=== PATIENT | male | born 1970 | race Caucasian/White ===

== ENCOUNTER 2020-01-19 17:37 | Inpatient (IN) | payer OTHER, SELFPAY ==
[2020-01-19 18:01] VITALS: BP 116/77; PULSE 120; RESP 20; TEMP 37.5; O2SAT 95; BMI 19.4
--- NOTE | 2020-01-19 19:50 | PC.NURSE ---
PT RESTING IN STRETCHER TALKING IN ANOTHER LANGUAGE TO SOMEONE NOT THERE. PT REQUESTING FOOD AND DRINK BUT HAS NOT SEEN MD YET. WILL CONTINUE TO MONITOR PT. PT DENIES LOC OR HITTING HEAD. PT ALERT, RESPIRATIONS N/L. WILL CONTINUE TO MONITOR PT.
--- NOTE | 2020-01-19 20:20 | XR_ITS ---
EXAMINATION: XR CHEST CLINICAL INFORMATION: Status post fall COMPARISON: None TECHNIQUE: 2 views of the chest were obtained. FINDINGS: No significant abnormality is noted involving the heart, lungs, mediastinum, bony thorax or soft tissues. XR/XR chest 2V IMPRESSION: Unremarkable examination.
--- NOTE | 2020-01-19 20:21 | CT_ITS ---
EXAMINATION: CT HEAD WITHOUT CONTRAST CT CERVICAL SPINE WITHOUT CONTRAST CLINICAL INFORMATION: Fall. COMPARISON: None. TECHNIQUE: Imaging was performed from the skull base to vertex without intravenous administration of contrast. In addition, helical noncontrast CT imaging was acquired through the cervical spine and source images were reviewed along with axial reconstructions and sagittal and coronal MPRs. [This CT examination was performed using dose optimization techniques as appropriate, variously including the following: *Automated exposure control *Adjustment of mA and/or kV according to patient size (this includes techniques or standardized protocols for targeted exams where dose is matched to indication/reason for exam; i.e. extremities or head) *Use of iterative reconstruction technique] DLP: 1087 mGy-cm FINDINGS: HEAD: No intracranial mass, hemorrhage, or midline shift is visualized. The ventricles and sulci are age-appropriate. No extra-axial collections are identified. The paranasal sinuses and mastoid air cells are well aerated. CERVICAL SPINE: There is no evidence of acute cervical spine fracture. Vertebral bodies remain normal in height. Cervical vertebrae have normal alignment. Cervical disc heights are normal. The facet joints are normal. No pre- or paravertebral soft tissue abnormality is identified. There is a spiculated irregular nodule in the left upper lobe measuring approximate 7 mm, axial image 251/280 series 11. Partial visualization of orthopedic plate and screw in the mandible bilateral. CT/CT cervical spine wo con IMPRESSION: 1. No acute intracranial pathology. 2. No CT evidence of acute cervical spine fracture or traumatic subluxation 3. Spiculated 7 mm nodule at the left lung apex. CT of chest with contrast recommended for follow-up.
--- NOTE | 2020-01-19 20:21 | ECG_ITS ---
Test Reason : FALL Blood Pressure : / mmHG Vent. Rate : 106 BPM Atrial Rate : 106 BPM P-R Int : 136 ms QRS Dur : 066 ms QT Int : 358 ms P-R-T Axes : 023 002 058 degrees QTc Int : 475 ms Sinus tachycardia Otherwise normal ECG No previous ECGs available Referred By: Hilda Durand Electronically Signed By:KELLY STUBBS MD
[2020-01-19 20:48] VITALS: BP 110/77; PULSE 112; RESP 16; O2SAT 97
[2020-01-19 21:00] LABS: MANUAL DIFF FLAG NO
[2020-01-19 21:01] LABS: Basophils Percent Auto 0.1 % (0-2); Eosinophils Percent Auto 0.2 % (0-4); Hemoglobin 7.3 g/dl (14.0-18.0); Imm Gran Pct Auto 0.9 % (0.0-0.4); Lymphocytes Absolute Auto 1.3 X10*3/uL (1.2-4.9); Lymphocytes Percent Auto 10.9 % (20-40); Mean Corpuscular Hemoglobin 32.4 pg (27.0-33.0); Mean Corpuscular Volume 90.2 fL (80-98); Mean Platelet Volume 9.2 fL (9.4-12.4); Monocytes Absolute Auto 1.1 X10*3/uL (0.1-1.2); Monocytes Percent Auto 9.8 % (2-11); Neutrophils Percent Auto 78.1 % (45-73); Platelet Count 339 X10*3/uL (160-400); Red Blood Count 2.25 X10*6/uL (4.60-5.80); Red Cell Distribution Width 13.2 % (11.0-16.0); White Blood Count 11.5 X10*3/uL (4.8-10.8)
[2020-01-19 21:06] LABS: Hematocrit 20.3 % (42-52)
[2020-01-19 21:07] LABS: INTERNATIONAL NORM RATIO 1.4 (0.9-1.1); Prothrombin Time 16.6 SEC (10.8-13.0)
[2020-01-19 21:39] LABS: Alanine Aminotransferase 22 U/L (0-40); Albumin Level 3.6 g/dL (3.5-5.0); Alkaline Phosphatase 93 U/L (39-117); Anion Gap 19 (12-20); Aspartate Amino Transferase 63 U/L (5-37); Bilirubin Direct 0.6 mg/dL (0.0-0.5); Blood Urea Nitrogen 29 mg/dL (9-16); Calcium 7.7 mg/dL (8.4-10.2); Carbon Dioxide 37 mmol/L (22-29); Chloride 77 mmol/L (96-108); Creatinine Clr Calc Pharmacy 44.1; Estimated Glomerular Filt Rate 42; Glucose Random 63 mg/dL (60-115); Potassium 2.3 mmol/l (3.3-5.1); Sodium 131 mmol/L (135-145); Total Protein 6.2 g/dL (6.5-8.0)
--- NOTE | 2020-01-19 21:59 | CT_ITS ---
EXAMINATION: CT ABDOMEN AND PELVIS WITHOUT CONTRAST CLINICAL INFORMATION: Status post fall, anemia. COMPARISON: None TECHNIQUE: Multidetector volumetric imaging was performed from the superior aspect of the liver through the pubic symphysis. Sagittal and coronal reformatted images were obtained on the technologist's workstation. There is some limitation to the study secondary to motion artifact. Lack of intravenous and oral contrast limits visceral evaluation. This CT examination was performed using dose optimization techniques as appropriate, variously including the following: *Automated exposure control *Adjustment of mA and/or kV according to patient size (this includes techniques or standardized protocols for targeted exams where dose is matched to indication/reason for exam; i.e. extremities or head) *Use of iterative reconstruction technique DLP: 320 mGy-cm FINDINGS: LUNG BASES: The visualized lung bases are unremarkable. LIVER, GALLBLADDER, AND BILIARY TREE: Diffuse decreased attenuation without focal abnormality. Homogeneous increased attenuation in the gallbladder lumen without surrounding abnormality. No biliary ductal dilatation. PANCREAS: Unremarkable. SPLEEN: Unremarkable. ADRENAL GLANDS: Unremarkable. KIDNEYS AND URETERS: The kidneys are normal in size, shape, and attenuation. No hydronephrosis, hydroureter, or calculi seen. No perinephric stranding. BLADDER: Unremarkable. GASTROINTESTINAL TRACT: The stomach, small bowel, appendix and large bowel are unremarkable. ABDOMINAL WALL: No significant hernia is appreciated. LYMPH NODES: No lymphadenopathy. VASCULAR: Mild atherosclerosis in the infrarenal abdominal aorta without significant ectasia. PELVIC VISCERA: Unremarkable. OSSEOUS STRUCTURES: L5-S1 mild degenerative disc disease. No suspicious or acute abnormality. CT/CT abdomen pelvis wo con IMPRESSION: 1. Hepatic steatosis without focal abnormality. 2. Diffuse increased attenuation in the gallbladder lumen represent sludge. No evidence for acute cholecystitis. This could be confirmed with right upper quadrant ultrasound. 3. L5-S1 mild degenerative disc disease. No definitive acute abnormality.
[2020-01-19] MEDS: 0.9 % Sodium Chloride 1,000 ML 999 ML IVCONT (22:00)
--- NOTE | 2020-01-19 22:00 | PC.NURSE ---
PT RESTING IN STRETCHER SPEAKING TO THE WALL IN BENINESE. PT ALSO TRYING TO EAT THE PAD AND LICKING PAD LIKE AN ICE CREAM CONE. PT RE-ORIENTED. HL PLACED TO LAC AND RIGHT AC.
[2020-01-19 22:11] LABS: Influenza A PCR NEGATIVE (Negative); Influenza B PCR NEGATIVE (Negative); Resp Syncy Virus RNA Qual PCR NEGATIVE (Negative); SARS COV2 PCR INHOUSE NEGATIVE (Negative)
[2020-01-19] MEDS: Potassium Chloride/H20 10 MEQ/100 ML PIGGYBACK 100 MEQ IV ×2 (22:25→23:15)
[2020-01-19] MEDS: Magnesium Sulfate/H2O 2 GM/50 ML PIGGYBACK IV (22:25)
--- NOTE | 2020-01-19 22:33 | PC.NURSE ---
PT CONFUSED IN STRETCHER, SPEAKING TO UNKNOWN OBJECTS AND GRABBING AT THINGS IN THE AIR. PT RE-ORIENTED. PT MEDICATED PER EMAR. NS UP AND RUNNING W/O, SITE X 2 INTACT. PT DENIES ANY COMPLAINTS AT THIS TIME.
--- NOTE | 2020-01-19 22:35 | PC.NURSE ---
PT ON MONITOR WITH HR 70.
--- NOTE | 2020-01-19 23:00 | PC.NURSE ---
pt continuously responding to internal stimuli, alternating between Telugu and Greek, fairly easy to redirect. Voice foreign language interpreter used for explanation of plan for care. This RN witnessed pt sign blood product consent form. Pt refused rectal exam. K+ running.
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
[2020-01-19 23:41] LABS: Magnesium < 0.7 mg/dL (1.6-2.6)
[2020-01-20] VITALS (11 sets, daily range): BP systolic 106–140; BP diastolic 65–93; PULSE 86–113; RESP 16–96; TEMP 36.4–37.6; O2SAT 96–100
[2020-01-20] MEDS: Potassium Chloride/H20 10 MEQ/100 ML PIGGYBACK 100 MEQ IV ×6 (00:05→14:24)
--- NOTE | 2020-01-20 00:40 | PC.NURSE ---
PT MEDICATED WITH FIRST BAG OF POTASSIUM AND MAGNESIUM PER EMAR, WILL CONTINUE TO HANG POTASSIUM PER EMAR. PT REMAINS CONFUSED AND RESTLESS IN STRETCHER. HOSPITALIST AT BEDSIDE WITH PT.
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
[2020-01-20] MEDS: Haloperidol Lactate 5 MG/ML VIAL 1 MG IVPUSH (00:55)
[2020-01-20] MEDS: 0.9 % Sodium Chloride 1,000 ML 999 ML IVCONT (00:55)
--- NOTE | 2020-01-20 00:55 | PC.NURSE ---
PT IS VERY RESTLESS AND PT MEDICATED PER EMAR.
--- NOTE | 2020-01-20 02:15 | PC.NURSE ---
1ST UNIT OF RBC UP AND RUNNING PER ORDERS. CONSENT SIGNED WITH MONTEZ PLEITEZ. VS OBTAINED. PT TOLERATING WELL.
--- NOTE | 2020-01-20 02:15 | PC.NURSE ---
this rn verifying 1 unit of rbc with Guera mims
--- NOTE | 2020-01-20 02:30 | PC.NURSE ---
VS OBTAINED AND NO REACTION NOTED AT THIS TIME. PT DENIES ANY COMPLAINTS. BLOOD INFUSING W/O DIFFICULTY. SITE INTACT.
[2020-01-20] MEDS: Acetaminophen 325 MG TABLET 650 MG PO (03:00)
--- NOTE | 2020-01-20 03:30 | PC.NURSE ---
BLOOD INFUSED W/O DIFFICULTY, NO REACTION NOTED.
--- NOTE | 2020-01-20 04:15 | PC.NURSE ---
REPEAT LABS DRAWN TO LAB FOR EVAL.
[2020-01-20 04:23] LABS: Basophils Percent Auto 0.2 % (0-2); Eosinophils Absolute Auto 0.1 X10*3/uL (0.0-0.4); Eosinophils Percent Auto 0.5 % (0-4); Hematocrit 22.3 % (42-52); Hemoglobin 7.9 g/dl (14.0-18.0); Imm Gran Abs Auto 0.08 X10*3/uL (0.00-0.03); Imm Gran Pct Auto 0.8 % (0.0-0.4); Lymphocytes Absolute Auto 1.3 X10*3/uL (1.2-4.9); Lymphocytes Percent Auto 14.1 % (20-40); Mean Corpuscular HGB Conc 35.4 g/dl (31.0-36.0); Mean Corpuscular Hemoglobin 31.6 pg (27.0-33.0); Mean Corpuscular Volume 89.2 fL (80-98); Mean Platelet Volume 9.3 fL (9.4-12.4); Monocytes Percent Auto 10.9 % (2-11); Neutrophils Percent Auto 73.5 % (45-73); Platelet Count 296 X10*3/uL (160-400); White Blood Count 9.5 X10*3/uL (4.8-10.8)
[2020-01-20 04:24] LABS: MANUAL DIFF FLAG NO
[2020-01-20 04:48] LABS: Ethanol < 10 mg/dL
[2020-01-20 05:09] LABS: Anion Gap 21 (12-20); Blood Urea Nitrogen 24 mg/dL (9-16); Carbon Dioxide 29 mmol/L (22-29); Chloride 87 mmol/L (96-108); Creatinine Clr Calc Pharmacy 70.1; Estimated Glomerular Filt Rate > 60; Glucose Random 56 mg/dL (60-115); Magnesium 1.4 mg/dL (1.6-2.6); Potassium 2.5 mmol/l (3.3-5.1); Sodium 134 mmol/L (135-145)
[2020-01-20] MEDS: Magnesium Sulfate/D5W 1 GM/100 ML PIGGYBACK IV (05:18)
[2020-01-20 05:19] LABS: Glucose Urine UA NEG (NEG); Leukocyte Esterase Urine NEG (NEG); Nitrite Urine NEG (NEG); PH 5.5 (5.0-8.0); Urine Blood NEG (NEG); Urine Ketones 15 MG/DL (NEG); Urine Protein NEG (NEG-TRACE)
[2020-01-20 05:21] LABS: Appearance Urine CLEAR; Color Urine DARK YELLOW
--- NOTE | 2020-01-20 05:50 | PM.EVENT ---
Event Note Date of Service: 01/20/20 Event Note: Repeat labs showin- Hgb of 7.3-->7.9 s/p unit of PRBC. Follow up repeat CBC in 4 hrs 2- K of 2.3-->2.5 and Mag 0.7-->1.4. 1 g STAT ordered per ED more. Follow up repeat Mag levels 9 am 3- pOCT glucose of 56 s/p D50 per ED. Follow up repeat POCT
[2020-01-20 06:47] LABS: Amphetamine Screen Urine Not Detected (Not Detect); Barbiturates, Urine Not Detected (Not Detect); Benzodiazepines Screen Urine Not Detected (Not Detect); Cannabinoid Screen Urine Not Detected (Not Detect); Cocaine Screen Urine Not Detected (Not Detect); Opiate Screen Urine Not Detected (Not Detect); Phencyclidine Screen Urine Not Detected (Not Detect)
--- NOTE | 2020-01-20 07:14 | PC.NURSE ---
report given to SUSAN Albright. Also informed [facility], pt already received 1 unit of PRBC.
--- NOTE | 2020-01-20 09:30 | P.PNIM_ITS ---
Subjective Subjective Date of Service: 01/20/20 Interval History: Seen in f/u for anemia, wilian, electrolytes abnormalities ROS: mostly spanish speaking and denies any issues at moment Physical Exam Vital Signs: Vital Signs: Last Vital Signs Temp 98.1 F 01/20/20 07:48 Pulse 90 01/20/20 07:48 Resp 18 01/20/20 07:48 BP 131/87 01/20/20 07:48 Pulse Ox 98 01/20/20 07:48 Body Mass Index 19.4 General: AO X 3, no acute distress Resp: CTA bilateral CVS: S1,S2,RRR GI: +BS, NT, no distention, delclined rectal exam Skin: No rash Neuro: motor grossly intact Psych: appropriate affect Objective Data Current Medications Generic Name Dose Route Start Last Admin Trade Name Freq PRN Reason Stop Dose Admin Potassium Chloride/Sodium Chloride 20 meq in 1,000 mls @ 100 mls/hr 01/20/20 09:30 IVCONT .Q10H [facility] Pharmacy Consult 1 each 01/19/20 22:00 Consult Rx Perform Med Rec MISCELLANE ONCE PRN Consult order Labs CBC & Chem 7: 01/20/20 08:58 01/20/20 08:58 Assessment and Plan (1) Anemia: Status: Acute (2) Hyponatremia: Status: Acute (3) AMS (altered mental status): Status: Acute (4) WILIAN (acute kidney injury): Status: Acute (5) Acute hypokalemia: Status: Acute (6) Low blood magnesium: Status: Acute Assessment and Plan: 49/m alcoholic presenting with fall, AMS and found to have multiple lab abnormalites including low K, low mag, wilian, hypOnatremia #Severe symptomatic anemia--likely from acute blood loss, he declined rectal exam -s/p 2 units of RBC, h/h is better -IV PPI -GI eval for likely EGD -avoid NSAID #WILIAN--likely pre renal state, resolved with hydration #Hyponatremia--likely chronic alchol related, is better #HypOkalemia--likely from chronic malnutrition and possible GI loss. -s/p multiple IV K, give additional K, recheck labs and give more as necessary -Correct Magnesium #Hypomagnesemia--from effect of chronic alcoholism -replace with IV and/o PO #AMS/metabolic encephalopathy from abnormal labs -correct underlying labs #Coagulopathy--likely from alcoholic liver disease -Vitamin K #history of alcohol abuse--he says he last drank over a week ago. Put him on CIWA
[2020-01-20 09:48] LABS: MANUAL DIFF FLAG NO
[2020-01-20 09:51] LABS: Basophils Percent Auto 0.1 % (0-2); Eosinophils Absolute Auto 0.1 X10*3/uL (0.0-0.4); Eosinophils Percent Auto 0.7 % (0-4); Hematocrit 22.6 % (42-52); Hemoglobin 8.1 g/dl (14.0-18.0); Imm Gran Pct Auto 1.2 % (0.0-0.4); Lymphocytes Absolute Auto 1.1 X10*3/uL (1.2-4.9); Lymphocytes Percent Auto 12.5 % (20-40); Mean Corpuscular HGB Conc 35.8 g/dl (31.0-36.0); Mean Corpuscular Volume 89.3 fL (80-98); Mean Platelet Volume 9.3 fL (9.4-12.4); Monocytes Percent Auto 11.8 % (2-11); NRBC Pct Auto 0.2 /100WBC (0.0-0.2); Neutrophils Absolute Auto 6.4 X10*3/uL (2.0-8.3); Neutrophils Percent Auto 73.7 % (45-73); Platelet Count 320 X10*3/uL (160-400); Red Blood Count 2.53 X10*6/uL (4.60-5.80); Red Cell Distribution Width 14.2 % (11.0-16.0); Retic HGB Equivalent 37.1 pg (30.0-35.0); Reticulocyte Percent 0.4 % (0.5-1.8); White Blood Count 8.6 X10*3/uL (4.8-10.8)
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
[2020-01-20] MEDS: KCl 20 mEq in 0.45% Sod 20 MEQ/1,000 ML IV.SOLN 100 MEQ IVCONT (10:05)
[2020-01-20 10:14] LABS: Magnesium 1.6 mg/dL (1.6-2.6)
[2020-01-20 10:15] LABS: Iron 36 mcg/dL (45-160); Percent Iron Saturation 19 % (15-50); Total Iron Binding Capacity 191 mcg/dL (228-428); Unsaturated Iron Binding 155 ug/dL
[2020-01-20 10:45] LABS: Anion Gap 17 (12-20); Blood Urea Nitrogen 20 mg/dL (9-16); Calcium 7.1 mg/dL (8.4-10.2); Carbon Dioxide 33 mmol/L (22-29); Chloride 87 mmol/L (96-108); Creatinine Clr Calc Pharmacy 82.1; Estimated Glomerular Filt Rate > 60; Glucose Random 55 mg/dL (60-115); Potassium 2.3 mmol/l (3.3-5.1); Sodium 135 mmol/L (135-145)
[2020-01-20 11:11] LABS: Ferritin 2720 ng/mL (20-250)
[2020-01-20 11:24] LABS: Glucose, Whole Blood 69 mg/dL (60-115)
[2020-01-20] MEDS: Potassium Chloride Packet 20 MEQ PACKET 40 MEQ PO ×3 (11:28→23:35)
[2020-01-20] MEDS: Phytonadione (Vit K1) Oral 10 MG/ML AMPUL 5 MG PO (11:30)
[2020-01-20] MEDS: KCl 20 mEq in 5% Dex/0.45% Sod 20 MEQ/1,000 ML IV.SOLN 100 MEQ IVCONT ×2 (11:34→22:15)
--- NOTE | 2020-01-20 13:41 | MHC.CM.PN ---
Male 49 DX AMS. Information obtained from family EMR and Patient. He is independent and lives alone. 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 DP home no services family transport. CM will follow.
[2020-01-20 14:50] LABS: Vitamin B12 258 pg/mL (200-900)
[2020-01-20 15:58] LABS: Anion Gap 19 (12-20); Carbon Dioxide 30 mmol/L (22-29); Chloride 91 mmol/L (96-108); Potassium 3.8 mmol/l (3.3-5.1); Sodium 136 mmol/L (135-145)
[2020-01-20] MEDS: Pantoprazole Sodium 40 MG/10 ML VIAL IVPUSH (17:40)
--- NOTE | 2020-01-20 19:05 | P.CONNP_ITS ---
History of Present Illness Reason for Consult Consult date: 01/20/20 Chief Complaint Chief complaint: AMS History of Present Illness Narrative: Poor historian. Information obtained from EHR and RN and MD Labs on adm noted with multiple metabolic abnl: WILIAN, severe hypoK, hypoMg, mild hypoNa, anemia Gtting K/Mg repalced Review of Systems Review of Systems Constitutional : No changes in activity, No lethargy, No recent prior head injury, No agitation, No increased fussiness ENT/Mouth : No Ear Pain, No Nasal discharge/drainage Eyes: No Eye Pain, No Swelling, No Redness, No Foreign Body, No Vision Changes Cardiovascular : No Chest Pain, No SOB Respiratory : No Cough Gastrointestinal : No Nausea, No Vomiting, No abdominal Pain Genitourinary : No Dysuria, No Urinary Frequency, No Urinary Incontinence, No Urgency, No Flank Pain Musculoskeletal : No joint pain, No neck stiffness, No back pain/injury Skin : No lacerations Neuro : No unsteady gait, No Paresthesias, No Loss of Consciousness, No altered mental status, No Headache PMFSH Past Medical History Medical History HTN (hypertension) Functional capacity: independent ambulation Social History Social History Household Members: None Housing: House Do you presently have visiting nurse or other home services: No Smoking Status: Current every day smoker Tobacco Type: Cigarette Packs Per Day: 1 Cigarettes Per Day: 20.0 Years Smoked: 45 Patient Interested in Nicotine Replacement: No Patient Given Instructions on How to Stop Smoking: Yes Date Education Initiated: 01/20/20 Use of substances other than those prescribed or required for medical reasons: No Currently Displaying Signs/Symptoms of Drug Intoxication Withdrawal: No Have you been hit, kicked, punched, or otherwise hurt by someone within the past year? If so, by whom?: No Do you feel safe in your current relationship?: No Is there a partner from a previous relationship who is making you feel unsafe now?: No Are you made to feel afraid or neglected: No Spiritual Healthcare Practices: none Druze Healthcare Practices: none Cultural Healthcare Practices: none Advance Directives: No Advance Directives Information Provided: Yes Do you have thoughts of harming others: None Do you have a plan to hurt others: No Plan Recently lost weight without trying: Unsure service: No Current occupational status: employed Meds Allergies Allergy/AdvReac Type Severity Reaction Status Date / Time No Known Allergies Allergy Verified 01/19/20 18:05 Physical Exam Vital Signs: Last Vital Signs Temp 98.8 F 01/20/20 16:00 Pulse 98 01/20/20 16:00 Resp 18 01/20/20 16:00 BP 124/84 01/20/20 16:00 Pulse Ox 98 01/20/20 16:00 Body Mass Index 19.4 Const General: alert, awake and other (confused) Orientation/consciousness: oriented to person, oriented to place and oriented to time HENMT Head: Yes normal to inspection Eyes General: appearance normal, both eyes and all related structures Neck Neck: Yes normal visual inspection Chest Chest palpation & inspection: normal inspection of the chest Resp Effort & Inspection: normal respiratory effort Auscultation: clear to auscultation bilaterally Cardio Jugular venous distension: no JVD Rate: tachycardic Rhythm: regular rhythm Heart sounds: S1 normal heart sound present and S2 normal heart sound present GI Inspection: Yes normal to inspection Skin General skin exam: no rashes or lesions noted Neuro General: oriented to person, oriented to place and oriented to time Extrem General: Yes normal to inspection Results Lab Results Result Diagrams: 01/20/20 08:58 01/20/20 14:59 Lab results: Chemistry 01/19/20 01/20/20 01/20/20 20:54 04:10 04:10 Sodium 131 L 134 L Cancelled Potassium 2.3 L* 2.5 L* Cancelled Carbon Dioxide 37 H 29 Cancelled BUN 29 H 24 H Cancelled Creatinine 1.73 H 1.09 Cancelled Calcium 7.7 L 7.0 L D Cancelled 01/20/20 01/20/20 08:58 14:59 Sodium 135 136 Potassium 2.3 L* 3.8 D Carbon Dioxide 33 H 30 H BUN 20 H Creatinine 0.93 Calcium 7.1 L Hematology 01/19/20 01/20/20 01/20/20 20:54 04:10 08:58 WBC 11.5 H 9.5 8.6 Hgb 7.3 L 7.9 L 8.1 L Plt Count 339 296 320 Urinalysis 01/20/20 04:56 Urine Color DARK YELLOW Urine Appearance CLEAR Urine pH 5.5 Ur Specific [place] 1.020 Urine Protein NEG Urine Glucose (UA) NEG Urine Ketones 15 Urine Blood NEG Urine Nitrite NEG Ur Leukocyte Esterase NEG Assessment and Plan (1) Anemia: Status: Acute (2) Hyponatremia: Status: Acute (3) AMS (altered mental status): Status: Acute (4) WILIAN (acute kidney injury): Status: Acute (5) Acute hypokalemia: Status: Acute (6) Low blood magnesium: Status: Acute 1. wilian; resolved w iVF c/w dehydration/ renal hypoperfusion 2. Severe HypoK: mutifact including malutrtion and dehydation with 2ry incr destin d/t decr IV volume and resulting incr Urine K losses 3. hypoNa: mild 4. HypoMg 5. ETOH abuse REC: agree with K replacement and track K; avoid NToxins repat K now in normal a=range as well as WILIAN resilved will sign off.. call prn
--- NOTE | 2020-01-20 20:59 | P.CNGI_ITS ---
History of Present Illness Data of Consult Service Date: 01/20/20 Requesting physician: [facility] Primary Care Provider: Unknown Physician HPI Reason for consult: anemia 49 y/o male w hx of HTN, and possible alcohol abuse who I am asked to see regards assessment of anemia. Apparently he was brought in after having had a fall. Found to be confused in ED with hypotension and tachycardia, tachypnea as well as multiple metabolic abns with anemia. Prior hgb 2019 was nml at 14 g/dl, came in with around 7 g/dl Today patient denies ay symptoms and wants to go home, denies abdo pain, di arrhea, melena, rectal bleeding. Seems vague with history and evasive juanpablo with alcohol usage, denies xs, says he drinks bradny on regular basis. also still confused, thinks he is in [facility] and can; t name [place] although knows who it is. says he has never had egd or colonoscopy. He does admit to weight loss bu again vague on nature of this, says he doesn;t know why he s losing weight He refused a rectal exam by previous providers. Review of Systems Review of Systems: Constitutional : No changes in activity, No lethargy, No recent prior head injury, No agitation, No increased fussiness ENT/Mouth : No Ear Pain, No Nasal discharge/drainage Eyes: No Eye Pain, No Swelling, No Redness, No Foreign Body, No Vision Changes Cardiovascular : No Chest Pain, No SOB Respiratory : No Cough Gastrointestinal : No Nausea, No Vomiting, No abdominal Pain Genitourinary : No Dysuria, No Urinary Frequency, No Urinary Incontinence, No Urgency, No Flank Pain Musculoskeletal : No joint pain, No neck stiffness, No back pain/injury Skin : No lacerations Neuro : No Headache Yes all other systems are reviewed and are negative PMFSH Past Medical History Medical History HTN (hypertension) Functional capacity: independent ambulation Social History Social History Household Members: None Housing: House Do you presently have visiting nurse or other home services: No Smoking Status: Current every day smoker Tobacco Type: Cigarette Packs Per Day: 1 Cigarettes Per Day: 20.0 Years Smoked: 45 Patient Interested in Nicotine Replacement: No Patient Given Instructions on How to Stop Smoking: Yes Date Education Initiated: 01/20/20 Use of substances other than those prescribed or required for medical reasons: No Currently Displaying Signs/Symptoms of Drug Intoxication Withdrawal: No Have you been hit, kicked, punched, or otherwise hurt by someone within the past year? If so, by whom?: No Do you feel safe in your current relationship?: No Is there a partner from a previous relationship who is making you feel unsafe now?: No Are you made to feel afraid or neglected: No Spiritual Healthcare Practices: none Yarsani Healthcare Practices: none Cultural Healthcare Practices: none Advance Directives: No Advance Directives Information Provided: Yes Do you have thoughts of harming others: None Do you have a plan to hurt others: No Plan Recently lost weight without trying: Unsure service: No Current occupational status: employed Meds Allergies Allergy/AdvReac Type Severity Reaction Status Date / Time No Known Allergies Allergy Verified 01/19/20 18:05 Physical Exam Vital Signs: Vital Signs: Last Vital Signs Temp 97.6 F 01/20/20 19:06 Pulse 104 H 01/20/20 19:06 Resp 96 H 01/20/20 19:06 BP 116/75 01/20/20 19:06 Pulse Ox 98 01/20/20 19:06 Body Mass Index 19.4 Const: General: alert, awake and other (confused) Nutritional Appearance: thin and underweight Orientation/consciousness: oriented to person, No oriented to place and No oriented to time HENMT: Head: Yes normal to inspection Eyes: General: appearance normal, both eyes and all related structures Neck: Neck: Yes normal visual inspection Chest: Chest palpation & inspection: normal inspection of the chest Resp: Effort & Inspection: normal respiratory effort Auscultation: clear to auscultation bilaterally Cardio: Jugular venous distension: no JVD Rate: tachycardic Rhythm: regular rhythm Heart sounds: S1 normal heart sound present and S2 normal heart sound present GI: Inspection: Yes normal to inspection Skin: General skin exam: no rashes or lesions noted Neuro: General: oriented to person, No oriented to place and No oriented to time Extrem: General: Yes normal to inspection Results Labs CBC & Chem 7: 01/20/20 08:58 01/20/20 14:59 Labs: Short CBC 01/19/20 01/20/20 01/20/20 Range/Units 20:54 04:10 08:58 WBC 11.5 H 9.5 8.6 (4.8-10.8) X10*3/uL Hgb 7.3 L 7.9 L 8.1 L (14.0-18.0) g/dl Hct 20.3 L* 22.3 L 22.6 L (42-52) % Plt Count 339 296 320 (160-400) X10*3/uL BMP 01/19/20 01/20/20 01/20/20 20:54 04:10 04:10 Sodium 131 L 134 L Cancelled Potassium 2.3 L* 2.5 L* Cancelled Chloride 77 L 87 L Cancelled Carbon Dioxide 37 H 29 Cancelled BUN 29 H 24 H Cancelled Creatinine 1.73 H 1.09 Cancelled Calcium 7.7 L 7.0 L D Cancelled 01/20/20 01/20/20 08:58 14:59 Sodium 135 136 Potassium 2.3 L* 3.8 D Chloride 87 L 91 L Carbon Dioxide 33 H 30 H BUN 20 H Creatinine 0.93 Calcium 7.1 L Liver Function 01/19/20 Range/Units 20:54 Total Bilirubin 1.0 (0.0-1.0) mg/dL Direct Bilirubin 0.6 H (0.0-0.5) mg/dL AST 63 H (5-37) U/L ALT 22 (0-40) U/L Alkaline Phosphatase 93 (39-117) U/L Albumin 3.6 (3.5-5.0) g/dL Urine 01/20/20 Range/Units 04:56 Urine Color DARK YELLOW Urine Appearance CLEAR Urine pH 5.5 (5.0-8.0) Ur Specific [place] 1.020 (1.005-1.025) Urine Protein NEG (NEG-TRACE) MG/DL Urine Glucose (UA) NEG (NEG) MG/DL Assessment and Plan (1) Anemia: Status: Acute (2) Hyponatremia: Status: Acute (3) AMS (altered mental status): Status: Acute (4) WILIAN (acute kidney injury): Status: Acute (5) Acute hypokalemia: Status: Acute (6) Low blood magnesium: Status: Acute 1/ Anemia, unknown duration, ferritin markedly raised, low b12, lyte abnormalities, possibly due to malnutrition and alcohol abuse. He remains confused, some confabulation may have wernicke/korsakoff syndrome. Raised ferritin may be sequel of alcohol abuse. No biochemical or physical exam to support cirrhosis. 2/ WILIAN prob from dehydration, possible alcoholism PLAN: 1/ I discussed in pt egd/colon with patient but he was adamant he wanted this to be done as o/p and wanted to go home. Not rally sure how competent he is to make decisions, bu given his refusal recommend conservtive rx with ppi and PRBC for the moment. Might need to consider psych assessment, consider further w/u, maybe check Carbohydrate-deficient transferrin (CDT), or PEth levels 2/ If he is deemed competent and stabilizes then will try to arrange early o/p endoscopies. 3/ in meantime can conside rCT imaging of a/p with PO and IV contrast to r/o intra abdominal pathology
[2020-01-21 03:42] VITALS: BP 125/82; PULSE 86; RESP 18; TEMP 36.6; O2SAT 94
[2020-01-21] MEDS: Pantoprazole Sodium 40 MG/10 ML VIAL IVPUSH (06:01)
[2020-01-21] MEDS: Potassium Chloride Packet 20 MEQ PACKET 40 MEQ PO (06:01)
[2020-01-21 08:00] VITALS: BP 133/90; PULSE 97; RESP 20; TEMP 36.9; O2SAT 98
[2020-01-21] MEDS: KCl 20 mEq in 5% Dex/0.45% Sod 20 MEQ/1,000 ML IV.SOLN 100 MEQ IVCONT (08:02)
[2020-01-21 09:26] LABS: MANUAL DIFF FLAG NO
[2020-01-21 09:28] LABS: Basophils Percent Auto 0.1 % (0-2); Eosinophils Absolute Auto 0.1 X10*3/uL (0.0-0.4); Eosinophils Percent Auto 0.6 % (0-4); Hematocrit 23.2 % (42-52); Hemoglobin 8.1 g/dl (14.0-18.0); Imm Gran Abs Auto 0.07 X10*3/uL (0.00-0.03); Imm Gran Pct Auto 0.9 % (0.0-0.4); Lymphocytes Absolute Auto 0.9 X10*3/uL (1.2-4.9); Lymphocytes Percent Auto 11.3 % (20-40); Mean Corpuscular HGB Conc 34.9 g/dl (31.0-36.0); Mean Corpuscular Hemoglobin 31.5 pg (27.0-33.0); Mean Corpuscular Volume 90.3 fL (80-98); Monocytes Percent Auto 12.5 % (2-11); NRBC Pct Auto 0.6 /100WBC (0.0-0.2); Neutrophils Percent Auto 74.6 % (45-73); Platelet Count 351 X10*3/uL (160-400); Red Blood Count 2.57 X10*6/uL (4.60-5.80); Red Cell Distribution Width 14.6 % (11.0-16.0)
[2020-01-21 10:03] LABS: Anion Gap 11 (12-20); Blood Urea Nitrogen 6 mg/dL (9-16); Calcium 7.5 mg/dL (8.4-10.2); Carbon Dioxide 34 mmol/L (22-29); Chloride 98 mmol/L (96-108); Creatinine Clr Calc Pharmacy 107.6; Estimated Glomerular Filt Rate > 60; Glucose Random 117 mg/dL (60-115); Potassium 4.3 mmol/l (3.3-5.1); Sodium 139 mmol/L (135-145)
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
[2020-01-21 11:06] LABS: Magnesium 1.2 mg/dL (1.6-2.6)
[2020-01-21 11:28] LABS: Iron 19 mcg/dL (45-160); Percent Iron Saturation 10 % (15-50); Total Iron Binding Capacity 187 mcg/dL (228-428); Unsaturated Iron Binding 168 ug/dL
[2020-01-21] MEDS: Magnesium Sulfate/H2O 2 GM/50 ML PIGGYBACK IV ×2 (11:53→13:38)
[2020-01-21 11:54] LABS: Thyroid Stimulating Hormone 0.86 uIU/mL (0.32-4.0)
[2020-01-21 12:00] VITALS: BP 122/72; PULSE 100; RESP 18; TEMP 37.2; O2SAT 98
[2020-01-21 12:47] LABS: Ferritin 2366 ng/mL (20-250)
--- NOTE | 2020-01-21 13:09 | MHC.CM.PN ---
Pt DC today to home, self care. Family will provide transportation.
[2020-01-21 13:45] LABS: Magnesium 1.6 mg/dL (1.6-2.6)
== END 2020-01-21 17:25 | disposition home or self-care (01) | DRG 640 ==
LOC: HO.ED 01-20 00:03 → HO.IMC 01-20 04:44
PROVIDERS: Physician Assistant Medical; Admitting Provider Internal Medicine; Emergency Provider Emergency Medicine Emergency Medical Services; Visit Provider Internal Medicine
DX: E87.1 Hypo-osmolality and hyponatremia (principal); G93.41 Metabolic encephalopathy; N17.9 Acute kidney failure, unspecified; D68.9 Coagulation defect, unspecified; D62 Acute posthemorrhagic anemia; E46 Unspecified protein-calorie malnutrition; Z68.1 Body mass index [BMI] 19.9 or less, adult; E83.42 Hypomagnesemia; F10.20 Alcohol dependence, uncomplicated; E87.6 Hypokalemia; E86.0 Dehydration; K70.9 Alcoholic liver disease, unspecified; Z91.81 History of falling; Z20.828 Contact with and (suspected) exposure to other viral communicable diseases
CPT/HCPCS: 0241U; 36415; 36430; 70450; 71046; 72125; 74176; 80048; 80051; 80076; 80307; 80320; 81003; 82607; 82728; 82746; 82947; 83540; 83735; 84443; 85025; 85045; 85060; 85610; 86850; 86900; 86901; 86920; 93005; 96361; 96365; 96366; 96375; 99284; 99291; J3430; J3475; P9016